=== PATIENT | female | born 1955 | race Caucasian/White ===

== ENCOUNTER 2022-01-20 08:43 | Outpatient (CLI) | payer MEDICARE, OTHER ==
[~2022-01-20 08:43] MED LIST: LOSA25TA96 PO
== END 2022-01-20 23:59 | disposition home or self-care (01) ==
LOC: CARD DIAG 08:43
PROVIDERS: ATTEND Internal Medicine Cardiovascular Disease
DX: I08.3 Combined rheumatic disorders of mitral, aortic and tricuspid valves (principal)
CPT/HCPCS: 93306